=== PATIENT | female | born 2000 ===

== ENCOUNTER 2018-08-20 20:19 | Emergency (ER) | payer OTHER ==
[~2018-08-20] VITALS: Ht 160 cm; Wt 63.5 kg
[~2018-08-20 20:19] MED LIST: PRENATAL CAPLE1 EACH
== END 2018-08-20 23:29 | disposition home or self-care (01) ==
LOC: ER 20:19
DX: R11.2 Nausea with vomiting, unspecified (principal); Z33.1 Pregnant state, incidental